=== PATIENT | female | born 1950 | race Caucasian/White ===

== ENCOUNTER 2019-10-26 05:45 | Emergency (ER) | payer SELFPAY ==
[~2019-10-26] VITALS: Ht 149.9 cm; Wt 48.9 kg
[2019-10-26] MEDS ORDERED: METFORMIN (06:02)
[2019-10-26] MEDS ORDERED: JANUVIA (06:02)
[2019-10-26] MEDS ORDERED: IBUPROFEN 600MG TABLET PO ONE (06:45)
[2019-10-26 09:48] VITALS: BP 149/70
== END 2019-10-26 09:53 | disposition home or self-care (01) ==
LOC: ER 05:45
DX: S92.345A Nondisplaced fracture of fourth metatarsal bone, left foot, initial encounter for closed fracture (principal); S92.355A Nondisplaced fracture of fifth metatarsal bone, left foot, initial encounter for closed fracture; E11.9 Type 2 diabetes mellitus without complications; Z98.42 Cataract extraction status, left eye; Z79.84 Long term (current) use of oral hypoglycemic drugs; W01.0XXA Fall on same level from slipping, tripping and stumbling without subsequent striking against object, initial encounter; Y93.89 Activity, other specified; Y92.018 Other place in single-family (private) house as the place of occurrence of the external cause
CPT/HCPCS: 73630; 99283; Z7610